=== PATIENT | male | born 1970 | race Caucasian/White ===

== ENCOUNTER 2017-10-18 21:19 | Emergency (ER) | payer BC ==
[2017-10-18 22:04] LABS: #Eosinphils 0.1 thou/uL (0.0-0.7); #Lymphocytes 3.1 thou/uL (1.20-3.40); #Monocytes 0.8 thou/uL (0.11-0.59); %Basophils 0.7 % (0.0-1.0); %Eosinophils 1.7 % (0.0-10.0); %Lymphocytes 43.7 % (21.0-51.0); %Monocytes 10.7 % (0.0-10.0); Hematocrit 49.5 % (42.0-52.0); Red Blood Cell (RBC) Count 5.68 mill/uL (4.70-6.10)
[2017-10-18 22:18] LABS: ALT (SGPT) 51 U/L (8-55); AST (SGOT) 26 U/L (5-34); Alkaline Phosphatase 49 U/L (40-150); Anion Gap 17 mmol/L (10-20); BUN (Urea Nitrogen) 13 mg/dL (8.9-20.6); Bilirubin, Total 1.5 mg/dL (0.2-1.2); Calc. Creatinine Clearance 0 mL/min (70-130); Calcium 10.2 mg/dL (7.8-10.44); Carbon Dioxide 24 mmol/L (22-29); Chloride 100 mmol/L (98-107); Estimated GFR-MDRD 67; Globulin 3.1 g/dL (2.4-3.5); Magnesium 2.4 mg/dL (1.6-2.6); Protein, Total 7.9 g/dL (6.0-8.3)
[2017-10-18 22:22] LABS: Troponin I 0.012 ng/mL (< 0.028)
[2017-10-18] MEDS ORDERED: Diazepam 5 MG TAB ONE (22:24)
[2017-10-18] MEDS ORDERED: Meclizine HCl 25 MG TAB ONE (22:25)
[2017-10-18] MEDS ORDERED: Ibuprofen 800 MG TAB ONE (22:25)
--- NOTE | 2017-10-18 22:52 | RAD ---
CHEST TWO VIEWS: History: Weakness. Comparison: 2010 FINDINGS: Lungs are clear. No pneumothorax or effusion. Cardiac silhouette and mediastinal contours are within normal limits. IMPRESSION: No acute intrathoracic abnormality. POS: [facility]
== END 2017-10-18 23:38 | disposition home or self-care (01) ==
LOC: ERS 21:19
DX: R42 Dizziness and giddiness (principal); E78.5 Hyperlipidemia, unspecified
CPT/HCPCS: 71020; 80053; 83735; 84484; 85025; 85379; 93005; 96360

== ENCOUNTER 2018-01-18 16:57 | Outpatient (CLI) | payer BC ==
[2018-01-18 17:33] LABS: Hemoglobin 15.3 g/dL (14.0-18.0); Mean Corpuscular HGB CONC 34.8 g/dL (32.0-36.0); Mean Corpuscular Hemoglobin 29.2 pg (27.0-31.0); Mean Corpuscular Volume 83.9 fl (80.0-94.0); Mean Platelet Volume 6.9 fL (7.4-10.4); Platelet Count 236 thou/uL (130-400); RBC Distribution Width 12.2 % (11.5-14.5); Red Blood Cell (RBC) Count 5.23 mill/uL (4.70-6.10); White Blood Cell (WBC) Count 7.4 thou/uL (4.8-10.8)
[2018-01-18 17:50] LABS: ALT (SGPT) 43 U/L (8-55); AST (SGOT) 23 U/L (5-34); Albumin 4.6 g/dL (3.5-5.0); Alkaline Phosphatase 45 U/L (40-150); Anion Gap 13 mmol/L (10-20); BUN (Urea Nitrogen) 15 mg/dL (8.9-20.6); Bilirubin, Direct 0.4 mg/dL (0.1-0.3); Bilirubin, Total 1.5 mg/dL (0.2-1.2); Calc. Creatinine Clearance 0 mL/min (70-130); Calcium 9.9 mg/dL (7.8-10.44); Carbon Dioxide 25 mmol/L (22-29); Chloride 105 mmol/L (98-107); Estimated GFR-MDRD 84; Glucose 95 mg/dL (70-105); Potassium 4.1 mmol/L (3.5-5.1); Protein, Total 7.4 g/dL (6.0-8.3); Sodium 139 mmol/L (136-145)
== END 2018-01-18 16:58 | disposition home or self-care (01) ==
LOC: LABBT 16:57
PROVIDERS: ATTEND Surgery
DX: Z01.818 Encounter for other preprocedural examination (principal); K82.8 Other specified diseases of gallbladder
CPT/HCPCS: 80048; 80076; 85027

== ENCOUNTER 2018-01-22 07:05 | Day surgery (SDC) | payer BC ==
[2018-01-18 17:47] VITALS: BMI 31.6
[2018-01-22] MEDS ORDERED: Midazolam HCl 2 mg/2 ml Vial ONE (08:47)
[2018-01-22] MEDS ORDERED: Bupivacaine/Epinephrine 0.25% 30 ML VIAL ONE (09:11)
[2018-01-22] MEDS ORDERED: Iothalamate Meglumine 60% 50 ML VIAL FS ONE (09:11)
[2018-01-22] MEDS ORDERED: Fentanyl 250 MCG/5 ML VIAL ONE ×2 (09:12→10:44)
[2018-01-22] MEDS ORDERED: CEFAZOLIN/Water 2 GM/20 ML SYRINGE ONE (09:18)
--- NOTE | 2018-01-22 10:46 | OP ---
DATE OF PROCEDURE: 01/22/2018 PREOPERATIVE DIAGNOSIS: Chronic biliary dyskinesia. POSTOPERATIVE DIAGNOSIS: Chronic biliary dyskinesia. PROCEDURE: Laparoscopic cholecystectomy with intraoperative cholangiogram. SURGEON: Danial Victor M.D. ANESTHESIA: General. ESTIMATED BLOOD LOSS: Minimal. COMPLICATIONS: None. SPECIMEN: Gallbladder. FINDINGS: Chronic cholecystitis. TECHNIQUE: The patient was taken to the operating room and placed supine on the table. After genera l anesthetic was obtained, the abdomen was shaved, prepped and draped in a sterile fashion. Curved i ncision was made below the umbilicus. Cautery was used to dissect down to and score the fascia. Abd ominal cavity entered bluntly using a Lindsey clamp. Holding stitch of PDS was placed on each side of the fascia. Bradford trocar was placed. High-flow pneumoperitoneum was obtained. An upper midline 5- mm port and two right upper quadrant 5-mm ports were placed under direct visualization. The gallblad darren was retracted from the gallbladder fossa. The peritoneum of the gallbladder was opened anteriorly and posteriorly. The critical view triangle was seen showing only the cystic duct and cystic artery branching from medial to lateral. There were no other branching structures. A clip was placed distal ly on the cystic duct. A small ductotomy was made just proximal to that. Cholangiocatheter was brou ght in through a separate stab incision and placed in cystic duct. Cholangiogram was performed which shows good contrast flow into the duodenum without obstruction. Cholangiocatheter was removed and t wo clips were placed proximally on the cystic duct and the cystic duct was cut using laparoscopic sci ssors. Cystic artery was taken in same way. Cautery was used to dissect the gallbladder and gallbla dder fossa. Gallbladder was placed in an Endocatch bag and brought out through the Bradford. All port sites were infiltrated using local anesthetic. All ports were removed under camera visualization. Pneumoperitoneum was let down. PDS was used to close the fascial defect below the umbilicus. All in cisions were irrigated and closed using 4-0 Monocryl and Dermabond. The patient was en route to [facility] in stable condition. All instrument counts, needle counts, and lap counts were correct.
--- NOTE | 2018-01-22 11:14 | RAD ---
OPERATIVE CHOLANGIOGRAM SINGLE VIEW: History: Intraoperative imaging during cholecystectomy procedure to assess bowel ducts. FINDINGS: Single image shows opacification of the common bile duct. There is no filling defect, stricture, or o ther abnormality identified. Contrast spill into the duodenum is noted. POS: [facility]
[2018-01-22] MEDS ORDERED: HYDROcodone/Acetaminophen 5/325 mg Tablet ONE (12:23)
[2018-01-22] MEDS ORDERED: Ondansetron ODT 4 MG TAB ONE (13:50)
[2018-01-22] MEDS ORDERED: Ketorolac Tromethamine 30 MG/ML VIAL ONE (14:22)
[2018-01-22] MEDS ORDERED: Ondansetron HCl/PF 4 MG/2 ML Vial ONE (14:22)
[2018-01-22] MEDS ORDERED: PROPOFOL 200 MG/20 ML VIAL ONE (14:22)
[2018-01-22] MEDS ORDERED: ePHEDrine/0.9% NaCl/PF SYRINGE 50 mg/10 ml ONE (14:22)
[2018-01-22] MEDS ORDERED: Glycopyrrolate 0.2 MG/ML 5 ML SYRINGE ONE ×2 (14:22)
[2018-01-22] MEDS ORDERED: Dexamethasone 20 MG/5 ML VIAL ONE (14:22)
[2018-01-22] MEDS ORDERED: Lidocaine 1% PF 5 ML VIAL ONE (14:22)
== END 2018-01-22 14:04 | disposition home or self-care (01) ==
LOC: SDC 07:05
PROVIDERS: ATTEND Surgery
PROC: BF00YZZ Plain Radiography of Bile Ducts using Other Contrast (ICD-10-PCS; principal; 2018-01-22)
PROC: 0FT44ZZ Resection of Gallbladder, Percutaneous Endoscopic Approach (ICD-10-PCS; principal; 2018-01-22)
DX: K81.1 Chronic cholecystitis (principal); K82.8 Other specified diseases of gallbladder; E78.5 Hyperlipidemia, unspecified; K76.0 Fatty (change of) liver, not elsewhere classified; Z79.1 Long term (current) use of non-steroidal anti-inflammatories (NSAID); Z79.52 Long term (current) use of systemic steroids; Z79.82 Long term (current) use of aspirin; Z79.899 Other long term (current) drug therapy; Z88.0 Allergy status to penicillin
CPT/HCPCS: 47532; 88304; 96374; J0131; J1100; J1885; J2001; J2250; J2405; J2704; J3010; Q0162; Q9961

== ENCOUNTER 2021-07-19 | Emergency (ER) | payer BC | END 2021-07-20 00:50 | disposition home or self-care (01) ==

== ENCOUNTER 2021-07-20 12:56 | Inpatient (IN) | payer BC ==
[~2021-07-20 12:56] MED LIST: Iopamidol-370 76% 500 ML 1 ML ONE
[2021-07-20 14:04] LABS: #Eosinphils 0.1 thou/uL (0.0-0.7); #Lymphocytes 0.7 thou/uL (1.20-3.40); #Monocytes 0.4 thou/uL (0.11-0.59); #Neutrophils 10.3 thou/uL (1.40-6.50); %Eosinophils 0.7 % (0.0-10.0); %Lymphocytes 5.7 % (21.0-51.0); %Monocytes 3.8 % (0.0-10.0); %Neutrophils 89.8 % (42.0-75.0); Hemoglobin 15.1 g/dL (14.0-18.0); Mean Corpuscular HGB CONC 35.2 g/dL (32.0-36.0); Mean Corpuscular Hemoglobin 29.3 pg (27.0-31.0); Mean Corpuscular Volume 83.3 fL (78.0-98.0); Mean Platelet Volume 6.8 fL (7.4-10.4); Platelet Count 276 thou/uL (130-400); Red Blood Cell (RBC) Count 5.15 mill/uL (4.70-6.10); White Blood Cell (WBC) Count 11.5 thou/uL (4.8-10.8)
[2021-07-20 14:29] LABS: ALT (SGPT) 67 U/L (8-55); AST (SGOT) 40 U/L (5-34); Albumin 3.3 g/dL (3.5-5.0); Alkaline Phosphatase 61 U/L (40-110); Anion Gap 14 mmol/L (10-20); BUN (Urea Nitrogen) 16 mg/dL (8.9-20.6); Bilirubin, Total 1.8 mg/dL (0.2-1.2); Calc. Creatinine Clearance 0 mL/min (70-130); Calcium 8.9 mg/dL (7.8-10.44); Carbon Dioxide 24 mmol/L (22-29); Chloride 105 mmol/L (98-107); Glucose 104 mg/dL (70-105); Potassium 3.9 mmol/L (3.5-5.1); Protein, Total 6.3 g/dL (6.0-8.3); Sodium 139 mmol/L (136-145)
[2021-07-20] MEDS ORDERED: Enoxaparin Sodium 80 MG/0.8 ML SYRINGE ONE (17:22)
[2021-07-20] MEDS ORDERED: Enoxaparin Sodium 30 MG/0.3 ML SYRINGE ONE ×2 (17:22→17:23)
[2021-07-21] MEDS ORDERED: Lactated Ringer's 1,000 ML IV SCH (01:30)
[2021-07-21] MEDS ORDERED: Ondansetron PF 4 MG/2 ML Vial IVP PRN ×2 (01:30→02:16)
[2021-07-21] MEDS ORDERED: Acetaminophen 325 MG TAB PO PRN ×2 (01:30→02:16)
[2021-07-21] MEDS ORDERED: Ondansetron ODT 4 MG TAB SL PRN (01:30)
[2021-07-21 01:42] VITALS: BMI 32.3
[2021-07-21] MEDS ORDERED: Bisacodyl 5 MG TAB PO PRN (02:16)
[2021-07-21 04:49] LABS: #Eosinphils 0.1 thou/uL (0.0-0.7); #Lymphocytes 1.1 thou/uL (1.20-3.40); #Monocytes 0.5 thou/uL (0.11-0.59); #Neutrophils 7.2 thou/uL (1.40-6.50); %Basophils 0.4 % (0.0-1.0); %Eosinophils 1.5 % (0.0-10.0); %Lymphocytes 12.1 % (21.0-51.0); %Monocytes 5.2 % (0.0-10.0); %Neutrophils 80.9 % (42.0-75.0); Hemoglobin 14.3 g/dL (14.0-18.0); Mean Corpuscular HGB CONC 33.5 g/dL (32.0-36.0); Mean Corpuscular Volume 83.7 fL (78.0-98.0); Mean Platelet Volume 6.9 fL (7.4-10.4); Platelet Count 257 thou/uL (130-400); Red Blood Cell (RBC) Count 5.08 mill/uL (4.70-6.10); White Blood Cell (WBC) Count 8.9 thou/uL (4.8-10.8)
[2021-07-21 05:07] LABS: Anion Gap 13 mmol/L (10-20); BUN (Urea Nitrogen) 16 mg/dL (8.9-20.6); CRP (Inflammatory) 7.63 mg/dL (= or < 0.5); Calc. Creatinine Clearance 163 mL/min (70-130); Calcium 8.4 mg/dL (7.8-10.44); Carbon Dioxide 24 mmol/L (22-29); Chloride 103 mmol/L (98-107); Glucose 96 mg/dL (70-105); Sodium 136 mmol/L (136-145)
[2021-07-21] MEDS: Enoxaparin Sodium 120 MG/0.8 ML SYRINGE SC SCH ×2 (09:43→17:50)
[2021-07-21] MEDS: Ascorbic Acid 500 mg Chewable Tablet PO SCH (09:44)
[2021-07-21] MEDS: Zinc Sulfate 220 MG CAP PO SCH (09:45)
[2021-07-21] MEDS: Dexamethasone 10 MG/ML VIAL SLOW IVP SCH (09:45)
[2021-07-21] MEDS: Icosapent Ethyl 1 GM CAPSULE PO SCH ×2 (09:45→20:28)
[2021-07-21] MEDS: Atorvastatin Calcium 10 MG TAB PO SCH (09:45)
[2021-07-22] MEDS: Enoxaparin Sodium 120 MG/0.8 ML SYRINGE SC SCH ×2 (06:12→06:13)
[2021-07-22] MEDS: Ascorbic Acid 500 mg Chewable Tablet PO SCH (09:40)
[2021-07-22] MEDS: Dexamethasone 10 MG/ML VIAL SLOW IVP SCH (09:41)
[2021-07-22] MEDS: Atorvastatin Calcium 10 MG TAB PO SCH (09:41)
[2021-07-22] MEDS: Icosapent Ethyl 1 GM CAPSULE PO SCH ×2 (09:42→20:05)
[2021-07-22] MEDS: Zinc Sulfate 220 MG CAP PO SCH (09:42)
[2021-07-22] MEDS: Apixaban 5 MG TAB PO SCH (20:05)
[2021-07-22] MEDS ORDERED: Apixaban 5 MG TAB PO SCH (21:00)
[2021-07-23 05:22] LABS: ALT (SGPT) 56 U/L (8-55); AST (SGOT) 35 U/L (5-34); Albumin 3.5 g/dL (3.5-5.0); Alkaline Phosphatase 59 U/L (40-110); Bilirubin, Direct 0.5 mg/dL (0.1-0.3); Bilirubin, Total 1.6 mg/dL (0.2-1.2); Protein, Total 6.6 g/dL (6.0-8.3)
[2021-07-23] MEDS: Ascorbic Acid 500 mg Chewable Tablet PO SCH (09:06)
[2021-07-23] MEDS: Apixaban 5 MG TAB PO SCH ×2 (09:06→21:22)
[2021-07-23] MEDS: Atorvastatin Calcium 10 MG TAB PO SCH (09:06)
[2021-07-23] MEDS: Icosapent Ethyl 1 GM CAPSULE PO SCH ×2 (09:07→21:23)
[2021-07-23] MEDS: Zinc Sulfate 220 MG CAP PO SCH (09:07)
[2021-07-23] MEDS: Dexamethasone 10 MG/ML VIAL SLOW IVP SCH (09:08)
[2021-07-23] MEDS: Benzonatate 100 MG CAP PO PRN (12:40)
[2021-07-24] MEDS: Icosapent Ethyl 1 GM CAPSULE PO SCH ×2 (09:03→20:19)
[2021-07-24] MEDS: Atorvastatin Calcium 10 MG TAB PO SCH (09:03)
[2021-07-24] MEDS: Apixaban 5 MG TAB PO SCH ×2 (09:03→20:10)
[2021-07-24] MEDS: Zinc Sulfate 220 MG CAP PO SCH (09:03)
[2021-07-24] MEDS: Ascorbic Acid 500 mg Chewable Tablet PO SCH (09:03)
[2021-07-24] MEDS: Dexamethasone 10 MG/ML VIAL SLOW IVP SCH ×2 (09:04→11:23)
[2021-07-24] MEDS ORDERED: Dexamethasone 4 MG TAB PO SCH (11:30)
[2021-07-24] MEDS: Benzonatate 100 MG CAP PO PRN (11:34)
[2021-07-25] MEDS ORDERED: Dexamethasone 4 MG TAB PO SCH (08:00)
[2021-07-25] MEDS: Icosapent Ethyl 1 GM CAPSULE PO SCH (08:27)
[2021-07-25] MEDS: Zinc Sulfate 220 MG CAP PO SCH (08:27)
[2021-07-25] MEDS: Ascorbic Acid 500 mg Chewable Tablet PO SCH (08:27)
[2021-07-25] MEDS: Atorvastatin Calcium 10 MG TAB PO SCH (08:27)
[2021-07-25] MEDS: Apixaban 5 MG TAB PO SCH (08:27)
[2021-07-25] MEDS: Benzonatate 100 MG CAP PO PRN (08:38)
[2021-07-25 12:44] VITALS: BP 132/93; TEMP 98
== END 2021-07-25 16:21 | disposition home or self-care (01) | DRG 177 ==
LOC: ERS 12:56 → ERHOLD 16:04 → 2SE 07-21 01:24
PROVIDERS: ADMIT Internal Medicine; ATTEND Internal Medicine
PROC: 8E0ZXY6 Isolation (ICD-10-PCS; principal; 2021-07-20)
DX: U07.1 COVID-19 (principal); J12.82 Pneumonia due to coronavirus disease 2019; J96.01 Acute respiratory failure with hypoxia; I26.99 Other pulmonary embolism without acute cor pulmonale; E78.5 Hyperlipidemia, unspecified; Z88.0 Allergy status to penicillin; Z79.82 Long term (current) use of aspirin; Z79.899 Other long term (current) drug therapy; Z90.49 Acquired absence of other specified parts of digestive tract
CPT/HCPCS: 36415; 36416; 71045; 71275; 80048; 80053; 80076; 82728; 84484; 85025; 85379; 86140; 93005; 96372; J1100; J1650; J8540; Q9967

== ENCOUNTER 2021-09-13 07:46 | Outpatient (CLI) | payer BC | END 2021-09-13 07:47 | disposition home or self-care (01) | LOC: BICMRI 07:46 | PROVIDERS: ATTEND Orthopaedic Surgery | DX: M47.816 Spondylosis without myelopathy or radiculopathy, lumbar region (principal); M25.551 Pain in right hip; M25.552 Pain in left hip; M47.817 Spondylosis without myelopathy or radiculopathy, lumbosacral region | CPT/HCPCS: 72148 ==

== ENCOUNTER 2023-08-28 21:31 | Observation (INO) | payer BC ==
[2023-08-29 00:21] VITALS: BMI 34.0
[2023-08-29] MEDS ORDERED: Acetaminophen 325 MG TAB PO PRN (00:22)
[2023-08-29] MEDS ORDERED: Ondansetron PF 4 MG/2 ML Vial IVP PRN (00:22)
[2023-08-29] MEDS ORDERED: Ketorolac Tromethamine 30 MG/ML VIAL IVP PRN (00:24)
[2023-08-29] MEDS ORDERED: Sodium Chloride 0.9% 1,000 ML IV SCH (00:30)
[2023-08-29 05:52] LABS: #Eosinphils 0.1 thou/uL (0.0-0.7); #Monocytes 0.8 thou/uL (0.11-0.59); #Neutrophils 4.9 thou/uL (1.40-6.50); %Basophils 0.3 % (0.0-1.0); %Eosinophils 1.3 % (0.0-10.0); %Lymphocytes 26.4 % (21.0-51.0); %Monocytes 10.5 % (0.0-10.0); %Neutrophils 61.2 % (42.0-75.0); Hematocrit 42.7 % (42.0-52.0); Hemoglobin 14.8 g/dL (14.0-18.0); Mean Corpuscular HGB CONC 34.7 g/dL (32.0-36.0); Mean Corpuscular Hemoglobin 29.4 pg (27.0-31.0); Mean Corpuscular Volume 84.7 fl (78.0-98.0); Mean Platelet Volume 10.4 fL (7.4-10.4); Platelet Count 153 10x3/uL (130-400); RBC Distribution Width 12.3 % (11.5-14.5); Red Blood Cell (RBC) Count 5.04 mill/uL (4.70-6.10); White Blood Cell (WBC) Count 7.9 10x3/uL (4.8-10.8)
[2023-08-29 06:22] LABS: ALT (SGPT) 38 U/L (8-55); AST (SGOT) 23 U/L (5-34); Alkaline Phosphatase 40 U/L (40-110); Anion Gap 13 mmol/L (10-20); BUN (Urea Nitrogen) 14 mg/dL (8.4-25.7); Bilirubin, Total 2.2 mg/dL (0.2-1.2); Calc. Creatinine Clearance 96 mL/min (70-130); Calcium 8.9 mg/dL (7.8-10.44); Carbon Dioxide 25 mmol/L (22-29); Chloride 105 mmol/L (98-107); Estimated GFR 56; Globulin 1.9 g/dL (2.4-3.5); Glucose 87 mg/dL (70-105); Potassium 4.2 mmol/L (3.5-5.1); Protein, Total 5.9 g/dL (6.0-8.3); Sodium 139 mmol/L (136-145)
[2023-08-29] MEDS: Rosuvastatin 20 MG TAB PO SCH (09:27)
[2023-08-29] MEDS: Icosapent Ethyl 1 GM CAPSULE PO SCH ×2 (09:59→20:30)
[2023-08-29] MEDS ORDERED: fentaNYL PF 100 MCG/2 ML SYRINGE ONE (14:15)
[2023-08-29] MEDS ORDERED: LevoFLOXacin 500 mg/D5W 100 ML BAG ONE (14:17)
[2023-08-29] MEDS ORDERED: PROPOFOL 200 MG/20 ML VIAL ONE (14:36)
[2023-08-29] MEDS ORDERED: Lidocaine 1% PF 5 ML VIAL ONE (14:36)
[2023-08-29] MEDS ORDERED: HYDROcodone/Acetaminophen 5/325 mg Tablet PO PRN ×2 (14:57)
[2023-08-29] MEDS ORDERED: Oxybutynin 5 MG TAB PO PRN (14:57)
[2023-08-29] MEDS ORDERED: Phenazopyridine HCl 100 MG TAB PO PRN (15:06)
[2023-08-29] MEDS ORDERED: fentaNYL 50 mcg/mL 1 mL Vial ONE (15:25)
[2023-08-29 17:21] LABS: Bacteria/HPF None Seen HPF (None Seen); Bilirubin Negative (Negative); Blood, Urine Negative (Negative); Clarity Clear (Clear); Glucose, Urine (Dipstick) Normal (Negative); Ketone, Urine Negative (Negative); Leukocyte Negative Leu/uL (Negative); Nitrite Negative (Negative); Protein, Urine (Dipstick) Negative (Neg-Trace); RBC/HPF 0-3 HPF (0-3); Specific Gravity, Urine 1.015 (1.002-1.036); Squamous Epithelial None Seen HPF (0-3); Urobilinogen Normal mg/dL (Less than 2); WBC/HPF 0-3 HPF (0-3); pH, Urine 5.5 (5.0-9.0)
[2023-08-29] MEDS: Docusate 100 MG CAP PO SCH (20:30)
[2023-08-29] MEDS ORDERED: cefTRIAXone\\ROCEPHIN 1 GM in Sodium Chloride 0.9% 100 ML IVPB SCH (21:00)
[2023-08-30 06:05] LABS: ALT (SGPT) 29 U/L (8-55); AST (SGOT) 16 U/L (5-34); Albumin 4.1 g/dL (3.5-5.0); Alkaline Phosphatase 40 U/L (40-110); Anion Gap 11 mmol/L (10-20); BUN (Urea Nitrogen) 12 mg/dL (8.4-25.7); Calc. Creatinine Clearance 103 mL/min (70-130); Carbon Dioxide 29 mmol/L (22-29); Chloride 104 mmol/L (98-107); Estimated GFR 61; Glucose 127 mg/dL (70-105); Protein, Total 6.1 g/dL (6.0-8.3); Sodium 140 mmol/L (136-145)
[2023-08-30] MEDS: Docusate 100 MG CAP PO SCH (08:30)
[2023-08-30] MEDS: Rosuvastatin 20 MG TAB PO SCH (08:30)
[2023-08-30 08:56] VITALS: BP 130/82; TEMP 98.3
[2023-08-30] MEDS ORDERED: Tamsulosin HCl 0.4 MG CAP PO SCH (09:00)
[2023-08-30] MEDS: Icosapent Ethyl 1 GM CAPSULE PO SCH (09:04)
== END 2023-08-30 11:25 | disposition home or self-care (01) ==
LOC: INTOOBSV 23:25 → SJJU 23:25
PROVIDERS: ADMIT Internal Medicine; ATTEND Student in an Organized Health Care Education/Training Program
PROC: 0T768DZ Dilation of Right Ureter with Intraluminal Device, Via Natural or Artificial Opening Endoscopic (ICD-10-PCS; principal; 2023-08-30)
DX: N13.2 Hydronephrosis with renal and ureteral calculous obstruction (principal); N40.0 Benign prostatic hyperplasia without lower urinary tract symptoms; E78.5 Hyperlipidemia, unspecified; K76.0 Fatty (change of) liver, not elsewhere classified; I10 Essential (primary) hypertension; K21.9 Gastro-esophageal reflux disease without esophagitis; I26.99 Other pulmonary embolism without acute cor pulmonale; Z79.01 Long term (current) use of anticoagulants; Z90.49 Acquired absence of other specified parts of digestive tract; Z87.891 Personal history of nicotine dependence; Z88.0 Allergy status to penicillin; Z79.899 Other long term (current) drug therapy
CPT/HCPCS: 36415; 36416; 71046; 74018; 74420; 80053; 81001; 85025; 87086; 93005; 93010; C2617; G0378; J0696; J1885; J1956; J2704; J3010; J3490; J7050

== ENCOUNTER 2023-09-05 08:43 | Day surgery (SDC) | payer BC ==
[2023-09-03 13:00] VITALS: BMI 33.2
[2023-09-05] MEDS ORDERED: Iopamidol 30 ML ONE (09:56)
[2023-09-05] MEDS ORDERED: LevoFLOXacin 500 mg/D5W 100 ML BAG ONE (09:59)
[2023-09-05] MEDS ORDERED: fentaNYL 50 mcg/mL 1 mL Vial ONE (10:00)
[2023-09-05] MEDS ORDERED: Ondansetron PF 4 MG/2 ML Vial ONE (10:33)
[2023-09-05] MEDS ORDERED: Rocuronium Bromide 10 MG/ML (10ML VIAL) ONE (10:33)
[2023-09-05] MEDS ORDERED: Lidocaine 1% PF 5 ML VIAL ONE (10:33)
[2023-09-05] MEDS ORDERED: PROPOFOL 200 MG/20 ML VIAL ONE (10:33)
[2023-09-05] MEDS ORDERED: Ketorolac Tromethamine 30 MG/ML VIAL ONE (10:33)
[2023-09-05] MEDS ORDERED: Oxybutynin 5 MG TAB ONE (11:42)
[2023-09-05] MEDS ORDERED: Phenazopyridine HCl 100 MG TAB ONE (11:42)
[2023-09-05] MEDS ORDERED: HYDROcodone/Acetaminophen 5/325 mg Tablet ONE (11:49)
[2023-09-05] MEDS ORDERED: Morphine 2 MG/ML VIAL ONE (12:23)
[2023-09-05] MEDS ORDERED: Promethazine HCl 25 MG/ML VIAL ONE (12:27)
== END 2023-09-05 13:30 | disposition home or self-care (01) ==
LOC: SDC 08:43
PROVIDERS: ATTEND Urology
PROC: 0T768DZ Dilation of Right Ureter with Intraluminal Device, Via Natural or Artificial Opening Endoscopic (ICD-10-PCS; principal; 2023-09-05)
PROC: 0TF68ZZ Fragmentation in Right Ureter, Via Natural or Artificial Opening Endoscopic (ICD-10-PCS; principal; 2023-09-05)
DX: N20.1 Calculus of ureter (principal); N20.0 Calculus of kidney; E78.5 Hyperlipidemia, unspecified; K76.0 Fatty (change of) liver, not elsewhere classified; K82.8 Other specified diseases of gallbladder; Z90.49 Acquired absence of other specified parts of digestive tract; Z87.891 Personal history of nicotine dependence; Z88.0 Allergy status to penicillin; Z88.1 Allergy status to other antibiotic agents; Z79.899 Other long term (current) drug therapy; Z28.9 Immunization not carried out for unspecified reason
CPT/HCPCS: 74018; 74420; 82365; 88300; C1747; C1769; C2617; J1885; J1956; J2272; J2405; J2550; J2704; J3010; Q9967

== ENCOUNTER 2023-12-26 08:27 | Outpatient (CLI) | payer BC | END 2023-12-26 08:28 | disposition home or self-care (01) | LOC: BICULT 08:27 | PROVIDERS: ATTEND Urology | DX: N20.0 Calculus of kidney (principal); Z98.890 Other specified postprocedural states | CPT/HCPCS: 76770 ==

== ENCOUNTER 2025-07-23 09:10 | Outpatient (CLI) | payer BC | END 2025-07-23 09:11 | disposition home or self-care (01) | LOC: ULT 09:10 | PROVIDERS: ATTEND Internal Medicine Gastroenterology | DX: K21.9 Gastro-esophageal reflux disease without esophagitis (principal); R79.89 Other specified abnormal findings of blood chemistry; R13.10 Dysphagia, unspecified; K76.0 Fatty (change of) liver, not elsewhere classified; R16.0 Hepatomegaly, not elsewhere classified | CPT/HCPCS: 76705 ==